=== PATIENT | male | born 1935 | race African-American/Black ===

== ENCOUNTER 2016-09-30 23:29 | Emergency (ER) | payer BC ==
[~2016-09-30] VITALS: Ht 182.9 cm; Wt 81.6 kg
[2016-09-30] MEDS ORDERED: Heparin 25,000u/D5W 500ml 500 ML IV SCH (23:45)
[2016-09-30] MEDS ORDERED: Heparin 5000 units/ml inj IV ONE (23:45)
--- NOTE | 2016-10-01 00:02 | Emergency Room Report ---
History of Present Illness General Chief Complaint: Chest Pain Source: Patient Present Illness HPI Is an 80-year-old male with a history of prostate cancer. He denies any chcf. He has mild dementia and take Namenda. Also takes Seroquel for sleep. Ativan as needed for anxiety. He presents with chief complaint of chest pain has been substernal and area. Onset yesterday. Persistent today. Because of continual pain 911 was called. EMS gave him case with him nitroglycerin and 325 mg of aspirin. Patient pain is pretty much resolved now. no nausea no vomiting. Does feel short of breath. No exertional component. No other complaint. Allergies: Coded Allergies: No Known Allergies (Unverified , 09/30/16) Patient History Past Medical History: see triage record, old chart reviewed Past Surgical History: other Pertinent Family History: none Social History: Denies: smoking Immunizations: other Reviewed Nursing Documentation: PMH: Agreed, PSxH: Agreed Review of Systems Eye: Denies: blurred vision, eye pain ENT: Denies: ear pain, nose congestion, throat swelling Respiratory: Denies: cough, shortness of breath Cardiovascular: Reports: chest pain, Denies: palpitations Gastrointestinal: Denies: abdominal pain, diarrhea, nausea, vomiting Musculoskeletal: Denies: back pain, joint pain Skin: Denies: rash Neurological: Denies: headache, numbness Endocrine: Denies: increased thirst, increased urine Hematologic/Lymphatic: Denies: easy bruising All Other Systems: negative except mentioned in HPI Physical Exam Vital Signs Date Time Temp Pulse Resp B/P Pulse Ox O2 Delivery O2 Flow Rate FiO2 09/30/16 23:20 100.0 98 18 104/54 97 Room Air vitals unremarkable. Repeat temperature is normal. Sp02 EP Interpretation: reviewed, normal General Appearance: well appearing, no apparent distress, alert Head: normocephalic, atraumatic Eyes: bilateral eye EOMI, bilateral eye PERRL ENT: hearing grossly normal, normal pharynx Neck: full range of motion, supple, no meningismus Respiratory: chest non-tender, lungs clear, normal breath sounds Cardiovascular #1: regular rate, rhythm, no murmur Gastrointestinal: normal bowel sounds, non tender, no mass, no organomegaly, no bruit, non-distended Musculoskeletal: back normal, gait/station normal, normal range of motion Psychiatric: mood/affect normal Skin: warm/dry Procedures Critical Care Time Critical Care Time Critical care is mandated in this patient who presented with acute myocardial infarction. Patient require my urgent intervention to attenuate the risks of metabolic collapse which may lead to cardiovascular collapse and . Critical care time is 35 minutes excluding any reportable procedure. Critical care time included evaluation, multiple reevaluation, looking at old charts, interpreting laboratory and diagnostic data, discussing case with patient and family and consultants, and charting. Medical Decision Making Diagnostic Impression: Primary Impression: AMI (acute myocardial infarction) Qualified Codes: I21.3 - ST elevation (STEMI) myocardial infarction of unspecified site ER Course Patient with ST elevation [place] inferiorly. Patient is pain-free now. Heparin bolus and drip initiated. We'll hold off Plavix per CHANO Garcia. IV fluid given also. Patient did transfer to high level of care via 911. EKG Diagnostic Results EKG Time: 00:01 Rate: normal Rhythm: other - ST elevation inferiorly ST Segments: other - ST elevation [place] Rhythm Strip Diag. Results Rhythm Strip Time: 00:01 EP Interpretation: yes Rate: 86 Rhythm: NSR, no PVC's, no ectopy, other Chest X-Ray Diagnostic Results Chest X-Ray Diagnostic Results : Chest X-Ray Ordered: Yes # of Views/Limited/Complete: 1 View Indication: Chest Pain EP Interpretation: Yes Interpretation: no consolidation, no effusion, no pneumothorax Impression: No acute disease Interpreting ER Provider: Electronically signed by Roger Flores MD Last Vital Signs Date Time Temp Pulse Resp B/P Pulse Ox O2 Delivery O2 Flow Rate FiO2 09/30/16 23:20 100.0 98 18 104/54 97 Room Air Status: improved Disposition: XFER SHT-TRM HOSP Condition: Serious Referrals: NON PHYSICIAN (PCP) ROGER FLORES M.D. Oct 01, 2016 00:02
[2016-10-01 00:22] VITALS: BP 104/54
[2016-10-01 00:40] LABS: BASOPHILS % (AUTO) 0.6 % (0.0-2.0); LYMPHOCYTES % (AUTO) 8.8 % (20.0-45.0); MEAN CORPUSCULAR HEMOGLOBIN 32.6 PG (27.0-31.0); MEAN CORPUSCULAR VOLUME 99 FL (80-99); MEAN PLATELET VOLUME 6.8 FL (6.5-10.1); MONOCYTES % (AUTO) 15.2 % (1.0-10.0); NEUTROPHILS % (AUTO) 75.4 % (45.0-75.0); PLATELET COUNT 191 K/UL (150-450); RED BLOOD COUNT 4.44 M/UL (4.70-6.10); RED CELL DISTRIBUTION WIDTH 13.3 % (11.6-14.8); WHITE BLOOD COUNT 10.6 K/UL (4.8-10.8)
[2016-10-01 00:48] LABS: ALANINE AMINOTRANSFERASE 22 U/L (3-41); ALBUMIN/GLOBULIN RATIO 1.5 (1.0-2.7); ANION GAP 12 (5-15); ASPARTATE AMINO TRANSFERASE 22 U/L (5-40); CALCIUM 10.2 mg/dL (8.6-10.2); CARBON DIOXIDE 29 mEQ/L (20-30); CHLORIDE 97 mEQ/L (98-107); HEMOLYSIS 4; POTASSIUM 4.1 mEQ/L (3.4-4.9); SODIUM 138 mEQ/L (135-145); TOTAL PROTEIN 7.6 g/dL (6.6-8.7); TROPONIN I < 0.30 ng/mL (<=0.30)
[2016-10-01 00:59] LABS: CKMB 2.9 ng/mL (< 6.7)
--- NOTE | 2016-10-01 08:51 | Diagnostic Imaging Report ---
Indications: Chest pain Technique: Portable AP chest Findings: Comparison: None Thoracic kyphosis is exaggerated. This somewhat limits evaluation of the lung apices. There is suggestion of upper retraction of both hilar structures, linear parenchymal densities and apical pleural thickening on the right. Mildly increased interstitial markings are suggested in both lung bases. Heart size, peripheral pulmonary vasculature within normal limits. No basal pleural abnormalities detected. Osteophytes in lower thoracic, lumbar spine. Aortic arch mildly calcified. IMPRESSION: Limited exam of lung apices demonstrating findings suggestive of chronic inflammatory changes at least on the right, possibly also left. Pulmonary bibasal interstitial prominence, nonspecific, acuity indeterminate Aortosclerosis Degenerative spondylosis
--- NOTE | 2016-10-03 10:57 | Cardiology Report ---
APPROVED REPORT EKG Measurement Heart [id number] Normal sinus rhythm ST elevation, consider inferolateral injury or acute infarct Abnormal ECG
== END 2016-10-01 00:22 | disposition short-term general hospital (02) ==
LOC: EDBD 23:29 → EMR 23:53
DX: I21.3 ST elevation (STEMI) myocardial infarction of unspecified site (principal); F41.9 Anxiety disorder, unspecified; F03.90 Unspecified dementia, unspecified severity, without behavioral disturbance, psychotic disturbance, mood disturbance, and anxiety
CPT/HCPCS: 36415; 71010; 80053; 82550; 82553; 83880; 84484; 85025; 93005; 96374; 96375; 99291; J1644